=== PATIENT | male | born 1940 | race Caucasian/White ===

== ENCOUNTER 2019-07-31 07:30 | Outpatient (CLI) | payer MEDICARE, BC, SELFPAY ==
[2019-07-31 07:37] VITALS: BP 128/64; PULSE 66; RESP 12; TEMP 36; O2SAT 94
--- NOTE | 2019-07-31 08:05 | PDOC.PAIN ---
Pain Clinic Procedure Note Procedure Note Procedure Note: PROCEDURE NOTE Transforaminal Epidural Steroid Injection with Fluoroscopic Guidance at right L3-4 TFESI Chief Complaint: right leg pain. Pre-operative diagnosis: lumbar radiculopathy Post-operative diagnosis: same as above JESUS DHALIWAL has been [facility] Lumbar Transforaminal Epidural Steroid Injection right L3-4 COMMENTS: Referring provider: Ms Fatou White APRN Allergies: NKDA Pre-procedure VAS: 8/10 down right leg. Follow up plan: if this injection fails to provide significant pain relief, then would proceed with L4-5 TFESI JESUS DHALIWAL was greeted by the nurse who verified patients name and . Patient was then taken to the fluoroscopy suite. JESUS was interviewed and the medical record reviewed. There were no medical, pharmacologic, radiographic or other structural contraindications to attempting fluoroscopically guided transforaminal lumbar epidural steroid injection. The risks, benefits, and potential side effects were reviewed with the patient. Risk include, but not limited to, post dural puncture, headache, infection, nerve injury, allergic reaction, possible increase in symptoms over the ensuing 24 to 48 hours, and paralysis. The patient appeared to understand, questions were answered and the patient agreed to proceed. Once I obtained informed verbal consent, the printed consent form was signed by the patient and myself. Standard time-out procedure was performed. TECHNIQUE: After informed written consent was obtained the patient was placed in the prone position. The lumbar spine was prepped with chloraprep and draped. Sterile technique was observed during the entire procedure ( cap, gloves, and mask were worn). Vitals signs were monitored throughout the procedure. The right side was marked with a radioopaque marker. The skin and subcutaneous structures were anesthetized with lidocaine 1% to a total volume of 3 ML at each level. Under fluoroscopic guidance, in ipsilateral oblique view, co-axial approach, 22 gauge 5'' spinal needle(s) were advanced to the base of the right L3. pedicle(s). The needle(s) were advanced to the superio-posterior aspect of the neural foramen under lateral view. Oblique and AP views were rechecked. Under AP view Omnipaque 240 1.5 cc's was injected while visualized with fluoroscopy. There was no evidence of intravascular uptake, the epidural space was delineated. 10 mg Dexamethasone was injected after negative aspiration, at each level, followed by lidocaine 1% 1.0-ML at each level. (49 cc of Omnipaque was wasted) Outcome: The patient tolerated the procedure well and had stable vital signs. The patient noted after getting up after the procedure that their right leg pain was at a 2 out of 10 level. Follow up plans and appointments were discussed with JESUS . The patient was observed in the pain clinic and then discharged after having met discharge criteria to the care of a service car driver. The patient received written instructions as documented in nursing records. Disposition: JESUS was discharged from the procedure suite without new neurological complaints. of note, on fluoroscopic image, there was end plate changes and osteophytes obscuring the right L3-4 foramen, needle access was obtained. Follow-up: Follow up with Ms Cindy APRN as scheduled or PRN. I personally performed the entire procedure. MAC STEIN DO, MPH ABPMR-subspecialty board certification in Pain Medicine Attending Physician-Pain Management
[2019-07-31 08:28] VITALS: BP 135/76; PULSE 66; RESP 17; O2SAT 92
--- NOTE | 2019-07-31 08:31 | DI.RAD_ITS ---
EXAM: XR PAIN CLINIC LUMBAR SP 2V CLINICAL HISTORY: Dx: Lumbar Radiculopathy TECHNIQUE: The exam was performed according to the usual protocol. COMPARISON: No exams were available for comparison FINDINGS: C-arm fluoroscopy was utilized by Dr. Cleary during reported lumbar steroid injection. Hard copy shows a pparent epidural injection in the lumbar region. Fluoro time 47.6 RADIATION DOSE DELIVERED:
[2019-07-31] MEDS: Omnipaque 240 MG/ML 50 ML BTL IJ (08:49)
[2019-07-31] MEDS: Dexamethasone Sod. Phos./Pres-Free 10 MG/ML VIAL IJ (08:49)
== END 2019-07-31 07:50 ==
PROVIDERS: PCP Legal Medicine; Visit Provider Internal Medicine
DX: M54.16 Radiculopathy, lumbar region (principal)
CPT/HCPCS: 64483; 72100; Q9967

== ENCOUNTER 2019-11-08 10:44 | Outpatient (CLI) | payer MEDICARE, BC, SELFPAY ==
--- NOTE | 2019-11-08 06:00 | DI.RAD_ITS ---
EXAM: XR PAIN CLINIC LUMBAR SP 2V CLINICAL HISTORY: Dx: Lumbar Radiculopathy TECHNIQUE: 2D and realtime digital imaging was performed. Fluoroscopy was provided in the OR COMPARISON: No exams were available for comparison FINDINGS: C-arm fluoroscopy was utilized by Dr. Ross. Please see Dr. Ross's procedure note. Hard copy shows i njection at the level of the neural foramen at what appears to be L4-5 on the right. Fluoro time, 22 seconds. RADIATION DOSE DELIVERED: Total DLP
[2019-11-08 11:34] VITALS: BP 157/80; PULSE 64; RESP 18; TEMP 37.1; O2SAT 95
--- NOTE | 2019-11-08 12:03 | PDOC.PAIN_ITS ---
Pain Clinic Procedure Note Procedure Note Procedure Note: LUMBAR / SACRAL TRANSFORAMINAL INJECTION at the right L4-L5 JESUS DHALIWAL has been referred to the [facility] for a transforaminal nerve root block and steroid injection. COMMENTS: He previously had right L3-L4 transforaminal JAQUELINE without much improvement or reproduction of his symptoms with the injection. DX: Lumbosacral radiculopathy Patient was interviewed and the medical record reviewed. There were no medical, pharmacologic, radiographic or other structural contraindications to attempting fluoroscopically guided transforaminal nerve root block and epidural steroid injection. Risks and expected side effects as well as potential benefit of the procedure were reviewed and voiced concerns addressed. The printed consent form was signed and witnessed. Standard time-out procedure was performed. Patient was placed in the prone position on the fluoroscopy table and automated blood pressure cuff and pulse oximeter applied. Fluoroscopy was utilized to identify the right L4 neural foramen between L4 and L5. A skin shari was made for the needle insertion site. A Chlorhexadine prep was carried out, and sterile drapes were applied. Local anesthesia was achieved in the skin and subcutaneous tissues. A 22 gauge curved tip spinal needle was then inserted, advanced with fluoroscopic guidance into the neural foramen, confirmed on the lateral view. After negative aspiration, 2 ml of Omnipaque 240 was injected confirming position in A/P and lateral views. This showed a good spread of dye transforaminally into the epidural space. There was no vascular update with co ntrast injection under continuous fluoroscopy and digital substraction. 15 mg of Dexamethasone was injected, followed by 0.5 ml of 1% Xylocaine flush for the nerve root block, as well. There was no unusual discomfort expressed, though he did feel pressure in the right leg along the area of his symptoms when I was injecting the solution. The needle was withdrawn. The patient tolerated the procedure well. A Band-Aid was applied. Vital signs were stable throughout the procedure and were as recorded in nursing records. If given, dosages of intravenous drugs for anxiolysis and analgesia were documented in nursing records. Follow up plans and appointments were discussed. Post procedure instruction was given as documented in nursing records and patient was discharged in the care of an identified shuttle van driver. COMMENTS:If this procedure is found to be successful, it can be completed up to 3 time per 12 months. CC: Antionette Zavaleta
[2019-11-08] MEDS: Dexamethasone Sod. Phos./Pres-Free 10 MG/ML VIAL IJ (12:04)
[2019-11-08] MEDS: Omnipaque 240 MG/ML 50 ML BTL IJ (12:04)
[2019-11-08 12:12] VITALS: BP 163/77; PULSE 67; RESP 22; O2SAT 96
== END 2019-11-08 11:04 ==
PROVIDERS: PCP Legal Medicine; Visit Provider Preventive Medicine Occupational Medicine
DX: M54.17 Radiculopathy, lumbosacral region (principal)
CPT/HCPCS: 64483; 72100; Q9967

== ENCOUNTER 2020-04-10 07:40 | Outpatient (CLI) | payer MEDICARE, BC, SELFPAY ==
--- NOTE | 2020-04-10 06:00 | DI.RAD_ITS ---
EXAM: XR PAIN CLINIC LUMBAR SP 2V CLINICAL HISTORY: Dx:Lumbar Radiculopathy TECHNIQUE: 2D and realtime digital imaging was performed. CONTRAST MATERIAL: Refer to procedure report. COMPARISON: No exams were available for comparison FINDINGS: Fluoroscopy was provided for Dr. Ross during the performance of a transforaminal epidural steroid in jection. Please refer to the procedure report for complete details. Fluoro time: 54.3 seconds IMPRESSION:
[2020-04-10 07:48] VITALS: BP 120/65; PULSE 66; RESP 16; TEMP 36.7; O2SAT 95
--- NOTE | 2020-04-10 08:30 | PDOC.PAIN ---
Pain Clinic Procedure Note Procedure Note Procedure Note: LUMBAR / SACRAL TRANSFORAMINAL INJECTION JESUS DHALIWAL has been referred to the [facility] for a transforaminal nerve root block and steroid injection. COMMENTS: Previous right L3 and L4 transforaminal ESIs on different dates. Very temporary relief with each. He has seen a spine surgeon who wants a right L2 transforaminal JAQUELINE. Seen by Ms. Louis on 03/03/20. I did review that evaluation and his most recent lumbar spine MRI. DX: Lumbosacral radiculopathy Patient was interviewed and the medical record reviewed. There were no medical, pharmacologic, radiographic or other structural contraindications to attempting fluoroscopically guided transforaminal nerve root block and epidural steroid injection. Risks and expected side effects as well as potential benefit of the procedure were reviewed and voiced concerns addressed. The printed consent form was signed and witnessed. Standard time-out procedure was performed. Patient was placed in the prone position on the fluoroscopy table and automated blood pressure cuff and pulse oximeter applied. Fluoroscopy was utilized to identify the right L2 neural foramen between L2 and L3. A skin shari was made for the needle insertion site. A Chlorhexadine prep was carried out, and sterile drapes were applied. Local anesthesia was achieved in the skin and subcutaneous tissues. A 22 gauge curved tip spinal needle was then inserted, advanced with fluoroscopic guidance into the neural foramen, confirmed on the lateral view. After negative aspiration, 2 ml of Omnipaque 240 was injected confirming position in A/P and lateral views. This showed a good spread of dye transforaminally into the epidural space. There was no vascular update with contrast injection under continuous fluoroscopy and digital substraction. 15 mg of Dexamethasone was injected, followed by 0.5 ml of 1% Xylocaine flush for the nerve root block, as well. There was no unusual discomfort expressed.The needle was withdrawn. The patient tolerated the procedure well. A Band-Aid was applied. Vital signs were stable throughout the procedure and were as recorded in nursing records. If given, dosages of intravenous drugs for anxiolysis and analgesia were documented in nursing records. Follow up plans and appointments were discussed. Post procedure instruction was given as documented in nursing records and patient was discharged in the care of an identified route driver coin machines. COMMENTS: No complications. CC: Antionette Zavaleta
[2020-04-10] MEDS: Dexamethasone Sod. Phos./Pres-Free 10 MG/ML VIAL IJ (08:38)
[2020-04-10] MEDS: Omnipaque 240 MG/ML 50 ML BTL IJ (08:38)
[2020-04-10 08:39] VITALS: BP 146/66; PULSE 71; RESP 20; O2SAT 93
== END 2020-04-10 08:00 ==
PROVIDERS: PCP Legal Medicine; Visit Provider Preventive Medicine Occupational Medicine
DX: M54.17 Radiculopathy, lumbosacral region (principal)
CPT/HCPCS: 64483; 72100; Q9967